=== PATIENT | female | born 2000 | race Caucasian/White ===

== ENCOUNTER 2019-03-25 11:54 | Emergency (ER) | payer OTHER ==
[2019-03-25 12:22] VITALS: BP 138/84
--- NOTE | 2019-03-25 12:32 | UC ---
Ear Complaint HPI - HPI Summary HPI Summary: Sore throat, fever, bilateral ear pain for the past 2-3 days. - History of Current Complaint Chief Complaint: UCGeneralIllness Stated Complaint: ST,BILATERAL EAR COMPLAINT Time Seen by Provider: 03/25/19 12:31 Hx Obtained From: Patient Hx Last Menstrual Period: 03/08/19 ?: No Onset/Duration: Gradual Onset Severity Initially: Mild Severity Currently: Moderate Pain Intensity: 0 Aggravating Factors: Nothing Alleviating Factors: Nothing Associated Signs/Symptoms: Positive: URI Symptoms - Allergies/Home Medications Allergies/Adverse Reactions: Allergies Allergy/AdvReac Type Severity Reaction Status Date / Time No Known Allergies Allergy Verified 03/25/19 12:22 PMH/Surg Hx/FS Hx/Imm Hx Previously Healthy: Yes - Surgical History Surgical History: None - Family History Known Family History: Positive: Non-Contributory - Social History Occupation: Student Lives: Dormitory/Roommates Alcohol Use: Occasionally Substance Use Type: None Smoking Status (MU): Never Smoked Tobacco Review of Systems All Other Systems Reviewed And Are Negative: Yes Constitutional: Positive: Fever, Chills ENT: Positive: Sore Throat, Ear Ache, Nasal Discharge Is Patient Immunocompromised?: No Physical Exam Triage Information Reviewed: Yes Appearance: Well-Appearing, No Pain Distress, Well-Nourished Vital Signs: Initial Vital Signs Temp 100.2 F 03/25/19 12:17 Pulse 109 03/25/19 12:17 Resp 16 03/25/19 12:17 BP 138/84 03/25/19 12:17 Pulse Ox 100 03/25/19 12:17 Vital Signs Reviewed: Yes Eyes: Positive: Conjunctiva Clear ENT: Positive: Pharyngeal erythema, Nasal drainage - Clear nasal coryza, TMs normal - TM's with fluid behind TM but good landmarks and light reflex., Tonsillar swelling, Tonsillar exudate, Uvula midline. Negative: Trismus, Muffled voice, Hoarse voice Neck: Positive: Supple, Nontender, Enlarged Nodes @ - Bilateral tonsillar lymph node enlargement. Respiratory: Positive: Lungs clear, Normal breath sounds, No respiratory distress, No accessory muscle use Cardiovascular: Positive: No Murmur, Pulses Normal, Brisk Capillary Refill, Tachycardia Abdomen Description: Positive: Nontender, No Organomegaly, Soft. Negative: CVA Tenderness (R), CVA Tenderness (L), Distended, Guarding, Hepatomegaly, McBurney' s Point Tenderness, Splenomegaly Bowel Sounds: Positive: Present Musculoskeletal Exam: Normal Neurological Exam: Normal Psychological Exam: Normal Skin Exam: Normal Ear Complaint Course/Dx - Course Course Of Treatment: Rapid strep: Positive Will treat with Amoxicillin, rest, antipyretics, fluids. - Differential Dx/Diagnosis Provider Diagnosis: Strep pharyngitis Discharge ED - Sign-Out/Discharge Documenting (check all that apply): Patient Departure All imaging exams completed and their final reports reviewed: No Studies - Discharge Plan Condition: Good Disposition: HOME Prescriptions: Amoxicillin PO (*) [Amoxicillin 875 MG (*)] 875 mg PO BID 10 Days #20 tab Patient Education Materials: Strep Throat (DC) Referrals: No Primary Care Phys,NOPCP [Primary Care Provider] - JAYME MEDELLIN [Z.BUSINESS, APPLICATION, OTHER] - Additional Instructions: Increase fluids, rest, change your toothbrush in 24 hours. Tylenol/Motrin as directed for fever. Follow up at the [facility] if no improvement in 3-4 days. - Billing Disposition and Condition Condition: GOOD Disposition: Home
== END 2019-03-25 13:00 | disposition home or self-care (01) ==
LOC: UCCORT 11:54
DX: J02.0 Streptococcal pharyngitis (principal); H92.09 Otalgia, unspecified ear; R09.89 Other specified symptoms and signs involving the circulatory and respiratory systems
CPT/HCPCS: 87651; 99202; G0463